=== PATIENT | male | born 2000 | race Two or more races ===

== ENCOUNTER 2023-03-28 20:12 | Inpatient (IN) | payer MEDICAID ==
[~2023-03-28] VITALS: Ht 180.3 cm; Wt 71.0 kg
[2023-03-28 21:27] LABS: Basophils # (auto) 0.1 10 ^3/uL (0-0.2); Basophils % (auto) 0.7 % (0.0-2.0); Eosinophils # (auto) 0 10 ^3/uL (0-0.8); Eosinophils % (auto) 0.1 % (0.0-7.0); Hematocrit 44.9 % (41.0-53.0); Hemoglobin 15.5 g/dL (13.5-17.5); Lymphocytes # (auto) 0.6 10 ^3/uL (0.4-5.4); Lymphocytes % (auto) 3.8 % (10.0-50.0); Mean Corpuscular Hemoglobin 32.9 pg (28.0-32.0); Mean Corpuscular Hgb Conc. 34.7 g/dL (32.0-36.0); Monocytes # (auto) 0.8 10 ^3/uL (0-1.3); Monocytes % (auto) 5.3 % (0.0-12.0); Neutrophils # (auto) 13.8 10 ^3/uL (1.6-8.6); Neutrophils % (auto) 90.1 % (37.0-80.0); Nucleated Red Blood Cells % 0.8 %; Red Blood Cells 4.72 10^6/uL (4.5-5.90); Red Cell Distribution Width 13.4 % (11.8-14.3); White Blood Cell 15.3 10^3/uL (4.4-10.8)
[2023-03-28 21:40] LABS: Alanine Aminotransferase 78 U/L (16-61); Anion Gap 3 (5-15); Aspartate Aminotransferase 80 U/L (15-37); BUN/Creatinine Ratio 13.1 (10.0-20.0); Blood Urea Nitrogen 11 mg/dL (7-18); Calcium 8.5 mg/dL (8.5-10.1); Carbon Dioxide 32 mmol/L (21-32); Chloride 102 mmol/L (98-107); GFR African American 148 mL/min; GFR Non-African American 123 mL/min; Glucose 94 mg/dL (74-106); Magnesium 2.2 mg/dL (1.6-2.6); Potassium 4.1 mmol/L (3.5-5.1); Sodium 137 mmol/L (136-145)
[2023-03-28 21:41] LABS: Partial Thromboplastin Time 27.1 SEC (24.5-34.5)
[2023-03-28 21:43] LABS: Acetaminophen < 2.0 ug/mL (10-30); Alkaline Phosphatase 96 U/L (45-117); Bilirubin, Total 0.4 mg/dL (0.2-1.0); Salicylate < 1.7 mg/dL (2.8-20.0); Total Protein 7.1 g/dL (6.4-8.2)
[2023-03-28 21:45] LABS: Urine Bacteria NONE SEEN /hpf (None Seen); Urine Blood Negative /uL (Negative); Urine Specific Gravity 1.005 (1.001-1.035); Urine WBC <1 /hpf (0 - 3)
[2023-03-28 21:47] LABS: Blood Alcohol < 3.0 mg/dL (<10)
[2023-03-28 21:51] LABS: Alcohol, Urine < 3.0 mg/dL (0-10); Amphetamine Screen, Urine NEGATIVE (NEGATIVE); Barbiturate Scree,Urine NEGATIVE (NEGATIVE); Benzodiazephine Screen, Urine NEGATIVE (NEGATIVE); Cannabinoid Screen, Urine NEGATIVE (NEGATIVE); Cocaine Screen, Urine NEGATIVE (NEGATIVE); Opiate Scree,Urine NEGATIVE (NEGATIVE); Phencyclidine Screen, Urine NEGATIVE (NEGATIVE)
[2023-03-28 23:25] LABS: INR 0.99 (0.9-1.15)
[2023-03-29] MEDS ORDERED: VANCOMYCIN 1GM/250ML 250 ML IV ONE (04:00)
[2023-03-29] MEDS ORDERED: PIPERACILLIN-TAZOB 3.375GM 100 ML IV ONE (04:00)
[2023-03-29] MEDS ORDERED: IBUPROFEN 600 MG TAB PO PRN (05:30)
[2023-03-29] MEDS ORDERED: ONDANSETRON HCL 4 MG/2 ML VIAL IV PRN (05:30)
[2023-03-29] MEDS ORDERED: DOCUSATE SOD 100 MG CAP PO PRN (05:30)
[2023-03-29] MEDS: SODIUM CHLORIDE 0.9% 1,000 ML IV SCH ×2 (05:30→22:10)
[2023-03-29] MEDS ORDERED: MORPHINE SULFATE INJ 2 MG/ml SYRG IV PRN (06:45)
[2023-03-29] MEDS ORDERED: NITROGLYCERIN 0.4 MG SL TAB SL PRN (06:45)
[2023-03-29] MEDS: cefTRIAXone 1GM/50ML D5W 50 ML IV SCH (09:00)
[2023-03-29] MEDS: FAMOTIDINE (10MG/ML) 2ML VL IV SCH ×2 (10:00→22:00)
[2023-03-29] MEDS: AZITHROMYCIN 500MG/ 250ML 250 ML IV SCH (10:00)
[2023-03-29] MEDS: ENOXAPARIN SOD 40 MG/0.4 ML SYRINGE SC SCH (10:00)
[2023-03-29] MEDS: ASPirin 81 mg TAB PO SCH (10:00)
[2023-03-29] MEDS: DexAMETHasone SOD PHOS 10MG/1ML VIAL INJ IV SCH (10:00)
[2023-03-29 22:25] VITALS: BP 132/79
[2023-03-30 00:25] VITALS: BP 132/79
[2023-03-30 05:00] VITALS: BP 126/76
[2023-03-30 09:00] VITALS: BP 122/58
[2023-03-30] MEDS: cefTRIAXone 1GM/50ML D5W 50 ML IV SCH (09:00)
[2023-03-30] MEDS: FAMOTIDINE (10MG/ML) 2ML VL IV SCH (09:07)
[2023-03-30] MEDS: AZITHROMYCIN 500MG/ 250ML 250 ML IV SCH (09:07)
[2023-03-30] MEDS: DexAMETHasone SOD PHOS 10MG/1ML VIAL INJ IV SCH (09:07)
[2023-03-30 09:41] LABS: Basophils # (auto) 0.1 10 ^3/uL (0-0.2); Basophils % (auto) 0.5 % (0.0-2.0); Eosinophils # (auto) 0.4 10 ^3/uL (0-0.8); Eosinophils % (auto) 3.7 % (0.0-7.0); Hematocrit 45.7 % (41.0-53.0); Hemoglobin 15.9 g/dL (13.5-17.5); Lymphocytes # (auto) 0.7 10 ^3/uL (0.4-5.4); Lymphocytes % (auto) 7.1 % (10.0-50.0); Mean Corpuscular Hemoglobin 32.9 pg (28.0-32.0); Mean Corpuscular Hgb Conc. 34.9 g/dL (32.0-36.0); Mean Corpuscular Volume 94.3 fL (80.0-100.0); Monocytes # (auto) 0.7 10 ^3/uL (0-1.3); Monocytes % (auto) 7.5 % (0.0-12.0); Neutrophils # (auto) 8.1 10 ^3/uL (1.6-8.6); Neutrophils % (auto) 81.2 % (37.0-80.0); Nucleated Red Blood Cells % 0.1 %; Red Blood Cells 4.84 10^6/uL (4.5-5.90); Red Cell Distribution Width 13.9 % (11.8-14.3); White Blood Cell 9.9 10^3/uL (4.4-10.8)
[2023-03-30] MEDS: ASPirin 81 mg TAB PO SCH (10:00)
[2023-03-30] MEDS: ENOXAPARIN SOD 40 MG/0.4 ML SYRINGE SC SCH (10:00)
[2023-03-30] MEDS: AMOXICILLIN/CLAVUL 875 MG TAB PO SCH ×2 (10:00→22:00)
[2023-03-30 10:09] LABS: Albumin 3.4 g/dL (3.4-5.0); Calcium 8.8 mg/dL (8.5-10.1)
[2023-03-30 10:13] LABS: BUN/Creatinine Ratio 14.9 (10.0-20.0); Bilirubin, Total 0.6 mg/dL (0.2-1.0); Total Protein 6.2 g/dL (6.4-8.2)
[2023-03-30 13:00] VITALS: BP 123/71
[2023-03-30 17:00] VITALS: BP 122/72
[2023-03-30 22:00] VITALS: BP 127/76
[2023-03-31 05:00] VITALS: BP 119/78
[2023-03-31 09:00] VITALS: BP 112/60
[2023-03-31] MEDS: ENOXAPARIN SOD 40 MG/0.4 ML SYRINGE SC SCH (10:00)
[2023-03-31] MEDS: AMOXICILLIN/CLAVUL 875 MG TAB PO SCH ×2 (10:00→20:39)
[2023-03-31] MEDS: ASPirin 81 mg TAB PO SCH (10:00)
[2023-03-31 13:00] VITALS: BP 127/74
[2023-03-31 17:00] VITALS: BP 113/61
[2023-03-31 22:00] VITALS: BP 122/80
[2023-04-01 05:00] VITALS: BP 115/71
[2023-04-01 09:00] VITALS: BP 125/70
[2023-04-01] MEDS: AMOXICILLIN/CLAVUL 875 MG TAB PO SCH (10:00)
[2023-04-01] MEDS: ASPirin 81 mg TAB PO SCH (10:00)
[2023-04-01] MEDS: ENOXAPARIN SOD 40 MG/0.4 ML SYRINGE SC SCH (10:00)
[2023-04-01 13:00] VITALS: BP 123/72
[2023-04-01] MEDS ORDERED: AUG875T PO (16:52)
[2023-04-01 18:49] VITALS: BP 123/72
== END 2023-04-01 22:32 | disposition home or self-care (01) | DRG 812 ==
LOC: ER 20:12 → EDBD 20:12 → TELE 03-29 06:44 → TELE-EAST 03-29 20:31 → EAST 03-30 16:29
PROVIDERS: ADMIT Nurse Practitioner Family; ATTEND Nurse Practitioner Acute Care
DX: T40.411A Poisoning by fentanyl or fentanyl analogs, accidental (unintentional), initial encounter (principal); J69.0 Pneumonitis due to inhalation of food and vomit; I21.A1 Myocardial infarction type 2; Y92.89 Other specified places as the place of occurrence of the external cause; Z59.00 Homelessness unspecified
CPT/HCPCS: 36415; 70450; 71045; 71275; 80053; 80307; 80320; 80329; 81001; 82010; 82553; 83605; 83735; 83880; 84443; 84484; 85025; 85610; 85652; 85730; 93005; 93306; 96365; 96367; 99291; G0378; J2543